=== PATIENT | male | born 1965 | race Hispanic/Latino ===

== ENCOUNTER → 2025-01-10 | Outpatient (CLI) | payer BC ==
[~2025-01-10] VITALS: Ht 170.2 cm; Wt 90.7 kg
--- NOTE | 2025-01-10 12:43 | EKG ---
[facility] Test Date: 2025-01-10 Test Time: 12:37:37 Pat Name: MONICA MCRAE Department: [facility] Room: Gender: M Brazer Electronic: [id number] : 1965 Requested By: KESHIA GOEL Order Number: [id number] Reading MD: Allen Leon Measurements Intervals [place] Rate: 62 P: 66 LA: 204 QRS: -29 QRSD: 103 T: 87 QT: 460 QTc: 469 Interpretive Statements Sinus rhythm Borderline prolonged LA interval RSR' IN V1 OR V2, PROBABLY NORMAL VARIANT Electronically Signed On 01-16-2025 07:18:18 CDT by Allen Leon Please click the below link to view image of tracing.
[2025-01-10 12:47] LABS: BASOPHILS % (AUTO) 1.7 % (0.0-5.0); EOSINOPHILS # (AUTO) 0.47 K/uL (0.00-0.70); EOSINOPHILS % (AUTO) 7.8 % (0.0-8.0); HEMATOCRIT 33.8 % (42-54); IMMATURE GRANULOCYTE ABSOLUTE 0.02 K/uL (0-1); LYMPHOCYTES # (AUTO) 1.4 K/uL (1.0-4.8); LYMPHOCYTES % (AUTO) 23.9 % (21.0-51.0); MEAN CORPUSCULAR HEMOGLOBIN 28.8 pg (27.0-33.0); MEAN CORPUSCULAR VOLUME 90.1 fL (79-99); MONOCYTES # (AUTO) 0.9 K/uL (0.1-1.0); MONOCYTES % (AUTO) 14.1 % (3.0-13.0); NEUTROPHILS # (AUTO) 3.1 K/uL (1.8-7.7); NEUTROPHILS % (AUTO) 52.2 % (40.0-77.0); PLATELET COUNT (AUTO) 184 K/uL (130-400); RED BLOOD CELL COUNT(AUTO) 3.75 MIL/uL (4.50-6.20); RED CELL DISTRIBUTION WIDTH 18.6 % (11.0-15.5)
[2025-01-10 12:57] LABS: CREATININE 4.5 mg/dL (0.5-1.3); INR 1.2 (0.85-1.15); POTASSIUM 4.3 mmol/L (3.5-5.1); PROTHROMBIN TIME 12.5 SEC (9.6-11.6)
[2025-01-10 12:58] LABS: PARTIAL THROMBOPLASTIN TIME 31.8 SEC (26.3-35.5)
[2025-01-10 13:52] VITALS: BP 203/76; PULSE 61; RESP 18
--- NOTE | 2025-01-10 14:21 | NUR ---
REPORT NOTIFIED DR GOEL/JELANI PT ON PLAVIX/ELIQUIS/ASA AND TOOK PLAVIX THIS MORNING. ALSO INFORMED PT HAS INFECTION TO RT FOOT AND IS RECEIVING TWO ANTIBIOTICS FOR OSTEO PER SPOUSE. PER JELANI SIMS WILL NEED TO GET CARDIAC CLEARANCE BEFORE SURGERY
--- NOTE | 2025-01-10 14:32 | HMCIMG ---
CHEST 1VW HISTORY: Preop COMPARISON: None FINDINGS: A frontal projection of the chest was obtained. Mild bilateral pulmonary infiltrates are seen may be related to mild pulmonary vascular congestion with possible superimposed pneumonitis. The heart is borderline enlarged. Right venous catheter is seen with distal tip in plane of the superior vena cava.. No evidence of aortic calcification is seen. IMPRESSION: 1. Mild bilateral pulmonary infiltrates are seen may be related to mild pulmonary vascular congestion with possible superimposed pneumonitis.
== END | disposition home or self-care (01) ==
LOC: DAH 11:40 → EDSTATUS 01-14 10:00
PROVIDERS: ATTEND Student in an Organized Health Care Education/Training Program
DX: Z01.818 Encounter for other preprocedural examination (principal); R91.8 Other nonspecific abnormal finding of lung field; N18.6 End stage renal disease
CPT/HCPCS: 80048; 85025; 85610; 85730; 36415; 71045; 93005; A6260

== ENCOUNTER 2025-03-11 06:41 | Day surgery (SDC) | payer BC ==
[2025-03-05 10:51] LABS: BASOPHILS # (AUTO) 0.16 K/uL (0.00-0.20); BASOPHILS % (AUTO) 1.6 % (0.0-5.0); EOSINOPHILS # (AUTO) 0.72 K/uL (0.00-0.70); EOSINOPHILS % (AUTO) 7.4 % (0.0-8.0); IMMATURE GRANULOCYTE ABSOLUTE 0.11 K/uL (0-1); LYMPHOCYTES # (AUTO) 1.6 K/uL (1.0-4.8); LYMPHOCYTES % (AUTO) 16.7 % (21.0-51.0); MEAN CORPUSCULAR HEMOGLOBIN 30.8 pg (27.0-33.0); MEAN CORPUSCULAR HGB CONC 32.9 g/dL (32.0-36.0); MEAN CORPUSCULAR VOLUME 93.7 fL (79-99); MONOCYTES # (AUTO) 1.1 K/uL (0.1-1.0); MONOCYTES % (AUTO) 11.4 % (3.0-13.0); NEUTROPHILS % (AUTO) 61.8 % (40.0-77.0); PLATELET COUNT (AUTO) 389 K/uL (130-400); RED BLOOD CELL COUNT(AUTO) 3.31 MIL/uL (4.50-6.20); RED CELL DISTRIBUTION WIDTH 18.1 % (11.0-15.5); WHITE BLOOD COUNT (AUTO) 9.7 K/uL (4.8-10.8)
[2025-03-05 11:25] VITALS: BP_SYST 180; BP_SYST 194; BP_DIAS 108; BP_DIAS 90; PULSE 64; RESP 17; TEMP 97.5
[2025-03-05 11:26] LABS: INR 1.09 (0.85-1.15); PROTHROMBIN TIME 11.5 SEC (9.6-11.6)
[~2025-03-11] VITALS: Ht 170.2 cm; Wt 90.7 kg
[2025-03-11] VITALS (16 sets, daily range): BP systolic 125–199; BP diastolic 56–90; PULSE 64–78; RESP 15–19; TEMP 97–98
[~2025-03-11 06:41] MED LIST: AMLO-258 PO; APIX5TAB PO; ASPI-1197 PO; ATOR40TA71 PO; DOXY100C5 PO; METO50TA18 PO; RENA-VITE PO; SERT-439 PO; SEVELAMER PO; SULF1TAB41 PO
[2025-03-11] MEDS ORDERED: HEParin-NS 1,000 UNIT/500 ML 500 ML IV ONE (07:20)
[2025-03-11 07:48] LABS: CREATININE 6.4 mg/dL (0.5-1.3); POTASSIUM 4.9 mmol/L (3.5-5.1)
[2025-03-11] MEDS ORDERED: ketaMINE 50MG/ML SYRINGE 50 MG/ML DISP.SYRIN ONE (07:50)
[2025-03-11] MEDS ORDERED: dexaMETHasone SOD PHOSPHATE 10MG/ML 1ML VIAL ONE (07:51)
[2025-03-11] MEDS ORDERED: ondanSETRON 4MG INJ ONE (07:52)
[2025-03-11] MEDS ORDERED: rocuRONium bROMide 10MG/1ML 5ML VL ONE (07:52)
[2025-03-11] MEDS ORDERED: SUCCINYLCHOLINE CHLORIDE 20 MG/ML 10 ML VIAL ONE (07:52)
[2025-03-11] MEDS ORDERED: proPOFol 10 MG/ML 20ML VIAL IV ONE (07:52)
[2025-03-11] MEDS ORDERED: NEOSTIGMINE METHYLSULFATE 1MG/ML IV ONE (07:52)
[2025-03-11] MEDS ORDERED: FENTanyl CITRate PF 50 MCG/1 ML 2ML VIAL ONE (07:52)
[2025-03-11] MEDS ORDERED: GLYCOPYRROLATE 0.2 MG/ML 5 ML VIAL ONE (07:52)
[2025-03-11] MEDS ORDERED: LIDOCAINE PF 100MG/5ML (2%) SYRINGE 5ML ONE (07:52)
[2025-03-11] MEDS ORDERED: MIDAZOLAM HCL 1 MG/ML 2ML VIAL ONE (07:53)
[2025-03-11] MEDS: ceFAZolin SODIUM 2 GM VIAL ONE (08:00)
[2025-03-11] MEDS: 0.9% NACL 500ML IV.SOLN 500 ML IV ONE (08:01)
[2025-03-11] MEDS ORDERED: SUGAMMADEX SODIUM 200 MG/2 ML VIAL IV ONE (08:23)
[2025-03-11] MEDS ORDERED: FAMOTIDINE 20MG VIAL IV ONE (08:24)
[2025-03-11] MEDS ORDERED: ePHEDrine SULFate 50 MG/ML AMPULE ONE (08:28)
[2025-03-11] MEDS ORDERED: HEParin 10,000 UNIT/10ML (1,000 UNIT/ML) VIAL ONE (08:53)
[2025-03-11] MEDS ORDERED: phenylEPHRINE HCL 10 MG/ML 1ML VIAL IV ONE (08:54)
[2025-03-11] MEDS: HEParin 10,000 UNIT/10ML (1,000 UNIT/ML) VIAL ONE (09:16)
--- NOTE | 2025-03-11 10:13 | OP ---
Operative Note: DATE OF PROCEDURE: 03/11/25 SURGEON: KESHIA GOEL MD [employer] CAPTAIN: [] PREOPERATIVE DIAGNOSIS: End-stage renal disease POSTOPERATIVE DIAGNOSIS: End-stage renal disease PROCEDURE: left upper extremity brachiocephalic fistula creation INDICATIONS: Patient needs access for dialysis ESTIMATED BLOOD LOSS: 5cc Devices left in place: None Anesthesia: General endotracheal DESCRIPTION OF PROCEDURE: Patient is brought to the operating room placed on the operating table in a supine position. Once general endotracheal anesthesia is achieved patient's left upper extremity up to the axilla is prepped and draped in sterile fashion. We did notice that the 3rd and 4th digit had necrotic tips on the left hand and also on the right. Using ultrasound we identified the cephalic vein and confirmed that it was adequate for fistula creation. We then proceeded to create a transverse incision at the antecubital fossa and dissected down through the skin and subcutaneous tissue to expose the cephalic vein vein. We exposed that for a length of about 6 cm. I then proceeded to release the cephalic vein in the antecubital fossa which is the upper arm and released it from attachments and any branches. Suture ligated the branches and transposed it to the medial portion of the arm to be able to create a anastomosis. We then proceeded to expose the brachial artery for a length of about 4 cm and obtained proximal and distal control. We then asked anesthesia to give 5000 units of heparin. I then proceeded to clamp the cephalic vein proximally and distally divided it at the level of the elbow. And suture ligated the distal and end. We then proceeded to to dilate the vein with heparinized saline and ensured that there were no leaks from all the branches were clipped or sutured. I then clamped the brachial artery proximally and distally. I then proceeded to create a end-to-side anastomosis between the brachial artery and the cephalic vein at the antecubital fossa with 6-0 Prolene. I then opened up the clamp to the vein first and that there to be backflow. And then proceeded to open the proximal clamp on the artery to flush out the anastomosis and then open the distal clamp. I then proceeded to suture the anastomosis. We ensured with a Doppler that we had a strong palmar arch pulse at the left hand and ulnar and radial pulses as well. We had a good thrill throughout the fistula. We then close the skin incision in 2 layers with subcutaneous tissue being closed with 3-0 Vicryl in running fashion and the skin was closed with 4-0 Monocryl in running fashion. Dermabond was applied over top and skin dressings were applied over top patient tolerated the procedure well all counts were correct x2 at the end of the procedure. KESHIA GOEL MD Mar 11, 2025 10:13
[2025-03-11 10:59] LABS: ABG OXYGEN SATURATION 59.2 % (94.0-98.0); BASE EXCESS,VENOUS BLOOD GAS -5.4 (-2.0-3.0); DEVICE COMMENT VEN; HCO3,VENOUS BLOOD GAS 22.1 (22.0-29.0); PCO2,VENOUS BLOOD GAS 52 (38-54); PH,VENOUS BLOOD GAS 7.243 (7.320-7.430); PO2,VENOUS BLOOD GAS 35.7 mmHg (23.0-48.0); VENT MODE, BG RA (ROOM AIR)
--- NOTE | 2025-03-11 11:25 | NUR ---
BOTH PT AND GIVEN VERBAL AND WRITTEN DISCHARGE INSTRUCTIONS. IV REMOVED SITE ASYMPTOMATIC PT WHEELED OUTSIDE DRIVING
== END 2025-03-11 11:40 | disposition home or self-care (01) ==
LOC: DAH 06:41
PROVIDERS: ATTEND Student in an Organized Health Care Education/Training Program
DX: I12.0 Hypertensive chronic kidney disease with stage 5 chronic kidney disease or end stage renal disease (principal); N18.6 End stage renal disease; E11.22 Type 2 diabetes mellitus with diabetic chronic kidney disease; F41.9 Anxiety disorder, unspecified; F32.A Depression, unspecified; Z99.2 Dependence on renal dialysis; Z86.2 Personal history of diseases of the blood and blood-forming organs and certain disorders involving the immune mechanism; Z86.73 Personal history of transient ischemic attack (TIA), and cerebral infarction without residual deficits; Z80.9 Family history of malignant neoplasm, unspecified; Z83.3 Family history of diabetes mellitus; Z82.49 Family history of ischemic heart disease and other diseases of the circulatory system; Z98.890 Other specified postprocedural states
CPT/HCPCS: 36818; 85025; 85610; 85730; 36415 ×2; 82947; 84295; 84132; 82435; 82948 ×2; 80048; 82803; 83605; 36600; A4663; J7040; J3490 ×5; J3010; J1100; J0330; J2003; J1644 ×3; J2250; J2704; J2405; J2710; J2371; J0690; A4649 ×3; C1713 ×2; A4930 ×2; A4215; A4213; A4222; A4221; A4216; A4606; A4223 ×2; A4600